=== PATIENT | female | born 1975 | race American Indian/Alaskan Native ===

== ENCOUNTER 2017-09-03 13:56 | Day surgery (SDC) | payer MEDICARE ==
[2017-09-03 15:03] VITALS: RESP 18; TEMP 97; O2SAT 100
[2017-09-03] MEDS ORDERED: Midazolam 2 MG/2 ML VIAL ONE (15:25)
[2017-09-03] MEDS ORDERED: Propofol 10 mg/ml Inj (20 ML) ONE (15:33)
[2017-09-03 15:46] VITALS: BMI 28.3
[2017-09-03 16:44] VITALS: BP 130/78; PULSE 84
--- NOTE | 2017-09-03 17:54 | RAD ---
PROCEDURE: Intraoperative Fluoroscopy. HISTORY: CERVICAL RADICULOPATHY FINDINGS: Fluoroscopic assistance was provided for pain management. Please refer to the operative report from GAEL Sharpe, , MD [facility]. Total fluoroscopic time (continuous mode and pulse mode) utilized during the procedure 50.1 (seconds). Total exam DLP: (mGy) 0.310 mGy per meter squared.
--- NOTE | 2017-09-04 06:44 | OP ---
PROCEDURE DATE: 09/03/2017 SURGEON: GAEL DE LA GARZA MD OPERATIVE PROCEDURE: Epidural steroid injection, interlaminar approach with fluoroscopic guidance. INJECTATE: A total of 5.0 cc consisting of 2.5 cc of Kenalog (40 mg/cc)/Celestone (6 mg/cc) with the remainder of saline. FINDINGS: Flow of contrast was excellent along and into the epidural space lateralizing towards the left. PROCEDURE: The patient was prepped and draped in a sterile fashion in the prone position after informed consent was signed and all patient questions were answered including the risks, benefits, alternative treatment options, and prognosis. The risks include but are not limited to infection, allergic reaction, nerve damage, stroke, paralysis, epidural hematoma, syncope, headache, respiratory or cardiac arrest, spinal cord injury, and scar formation. Using a paramedian approach from the side mentioned above, the region overlying the inferior lamina was localized under fluoroscopic visualization and the soft tissues overlying this structure were infiltrated with 4 cc of 1% lidocaine without epinephrine. A #17 gauge Tuohy needle was inserted into the epidural space using a paramedian approach. The epidural space was localized using loss of resistance after negative aspirate for air, blood, and CSF. A 2 cc volume of Omnipaque-300 was injected into the epidural space and the flow of contrast was observed. Radiographs were obtained for documentation purposes. The injectate was administered into the level noted above. The patient tolerated the procedure well and was discharged after an appropriate period of observation. If there are any complications, the patient was instructed to call us. The patient is to follow up with the requesting physician in one to two weeks. Gael De La Garza MD
== END 2017-09-03 17:06 | disposition home or self-care (01) ==
LOC: C.SDS 13:56
PROVIDERS: ATTEND Neuromusculoskeletal Medicine, Sports Medicine
DX: M54.12 Radiculopathy, cervical region (principal)
CPT/HCPCS: 62323; 82948; J2250; J2704; J3010

== ENCOUNTER 2018-06-10 15:21 | Outpatient (CLI) | payer MEDICARE, SELFPAY | END 2018-06-10 15:22 | disposition home or self-care (01) | LOC: C.RADIC 15:21 ==

== ENCOUNTER 2018-06-11 12:26 | Outpatient (CLI) | payer MEDICARE, OTHER | END 2018-06-11 12:27 | disposition home or self-care (01) | LOC: C.MRIC 12:26 | DX: M54.16 Radiculopathy, lumbar region (principal) ==

== ENCOUNTER 2018-06-17 14:29 | Outpatient (CLI) | payer MEDICARE, OTHER | END 2018-06-17 14:30 | disposition home or self-care (01) | LOC: C.MRIC 14:29 | DX: M23.91 Unspecified internal derangement of right knee (principal) ==

== ENCOUNTER 2018-06-18 13:36 | Outpatient (CLI) | payer MEDICARE, OTHER | END 2018-06-18 13:37 | disposition home or self-care (01) | LOC: C.MRIC 13:36 | DX: M54.12 Radiculopathy, cervical region (principal) ==

== ENCOUNTER 2018-07-18 12:59 | Outpatient (CLI) | payer MEDICARE, OTHER | END 2018-07-18 13:00 | disposition home or self-care (01) | LOC: C.RADIC 12:59 | DX: M79.671 Pain in right foot (principal) ==

== ENCOUNTER 2018-07-24 15:24 | Outpatient (CLI) | payer MEDICARE, OTHER, SELFPAY | END 2018-07-24 15:25 | disposition home or self-care (01) | LOC: C.MAMMO 15:24 | DX: Z12.31 Encounter for screening mammogram for malignant neoplasm of breast (principal) ==